=== PATIENT | male | born 1955 | race Caucasian/White ===

== ENCOUNTER 2021-10-25 10:20 | Emergency (ER) | payer MEDICARE ==
[~2021-10-25] VITALS: Ht 182.9 cm; Wt 81.0 kg
[2021-10-25] MEDS ORDERED: NAP500T PO (12:28)
[2021-10-25 12:31] VITALS: BP 127/86
== END 2021-10-25 12:28 | disposition home or self-care (01) ==
LOC: ER 10:20
DX: S92.321A Displaced fracture of second metatarsal bone, right foot, initial encounter for closed fracture (principal); W22.8XXA Striking against or struck by other objects, initial encounter; Y93.89 Activity, other specified; Y92.89 Other specified places as the place of occurrence of the external cause; Y99.8 Other external cause status
CPT/HCPCS: 29515; 73630